=== PATIENT | male | born 1935 | race Caucasian/White ===

== ENCOUNTER 2020-03-02 12:26 | Emergency (ER) | payer OTHER ==
[~2020-03-02] VITALS: Ht 182.9 cm; Wt 90.7 kg
[~2020-03-02 12:26] MED LIST: AZITHROMYCIN 2250 MG; CARAFATE 1 GM TA1 G1 PO; COZAAR 25 MG TA25 M1 PO; METHYLPREDNISOLO4 M1; MUCINEX TA600 MG/TA2; PROTONIX40 M1 PO; XANAX 0.25 MG0.25 MG PO
[2020-03-02] MEDS ORDERED: KEFLEX500 M1 PO (13:48)
[2020-03-02 14:11] VITALS: BP 142/70
== END 2020-03-02 14:16 | disposition home or self-care (01) ==
LOC: M.ERS 12:26
DX: S61.217A Laceration without foreign body of left little finger without damage to nail, initial encounter (principal); I10 Essential (primary) hypertension; Z88.0 Allergy status to penicillin; Z79.899 Other long term (current) drug therapy; W22.8XXA Striking against or struck by other objects, initial encounter; Y93.89 Activity, other specified; Y92.89 Other specified places as the place of occurrence of the external cause; Y99.9 Unspecified external cause status